=== PATIENT | male | born 1975 | race Caucasian/White ===

== ENCOUNTER 2017-06-11 18:52 | Emergency (ER) | payer MEDICAID ==
--- NOTE | 2017-06-11 19:11 | Emergency Department Record ---
History of Present Illness - General Chief complaint: Pain Stated complaint: RT SIDE RIB PAIN Time Seen by Provider: 06/11/17 19:07 Source: Patient Mode of Arrival: Ambulatory Limitations: No limitations - History of Present Illness Initial comments: 42 yo male presents to ED for evaluation of right anterior chest wall pain following injury that occurred approximately 30 minutes [employer]. Patient reports that he was wrestling with a friend who came down on the right side of his chest resulting in injury. Patient report pain with movement and deep inspiration, denies health problems at his baseline. Onset/Timin -: Minutes(s) Location: Right Severity scale (1-10): 6 Quality: Sharp Consistency: Intermittent Improves with: Immobilization Worsens with: Other (deep breath, movement) Associated Symptoms: Denies other symptoms - Related Data Allergies Allergy/AdvReac Type Severity Reaction Status Date / Time No Known Drug Allergies Allergy Verified 08/08/15 10:29 Travel Screening - Travel/Exposure Within Last 30 Days Have you traveled within the last 30 days?: No - Travel/Exposure Within Last Year Have you traveled outside the [place] in the last year?: No - Additonal Travel Details Have you been exposed to anyone with a communicable illness?: No - Travel Symptoms Symptom Screening: None Review of Systems Constitutional: Denies: Chills, Fever, Malaise, Night sweats Eyes: Denies: Eye discharge, Eye pain ENT: Denies: Congestion, Ear pain, Epistaxis Respiratory: Denies: Cough, Dyspnea Cardiovascular: Reports: Chest pain. Denies: Dyspnea on exertion, Palpitations , Paroxysmal nocturnal dyspnea Endocrine: Denies: Fatigue, Heat or cold intolerance Gastrointestinal: Denies: Abdominal pain, Nausea, Vomiting Genitourinary: Denies: Incontinence, Retention Musculoskeletal: Denies: Arthralgia, Back pain, Gout, Joint swelling Skin: Denies: Bruising, Change in color Neurological: Denies: Abnormal gait, Confusion, Headache, Tingling Psychiatric: Denies: Anxiety Hematological/Lymphatic: Denies: Anemia, Blood Clots Past Medical History - SOCIAL HISTORY Smoking Status: Current every day smoker Alcohol Use: None Drug Use: None - RESPIRATORY Hx Respiratory Disorders: No Hx Asthma: Yes Comment:: pt does not take meds for asthma - CARDIOVASCULAR Hx Cardio Disorders: No - NEURO Hx Neuro Disorders: Yes Hx Headaches: Yes (Migraine hx) Hx Seizures: Yes (Complicated Migrianes. Hemiplegic.) - GI Hx GI Disorders: No - Hx Genitourinary Disorders: No - ENDOCRINE Hx Endocrine Disorders: No - MUSCULOSKELETAL Hx Musculoskeletal Disorders: No - PSYCH Hx Psych Problems: No - HEMATOLOGY/ONCOLOGY Hx Hematology/Oncology Disorders: Yes Comment:: Antitrypsin deficiency Family Medical History Any Significant Family History?: Yes Hx Diabetes: Father Hx Heart Disease: Father, Grandparents Physical Exam - General General Appearance: Alert, Oriented x3, Cooperative, Moderate distress, Other ( Denies the need for analgesia on examination.) Limitations: No limitations - Head Head exam: Atraumatic, Normocephalic, Normal inspection Head exam detail: negative: Abrasion, Contusion, Cardozo's sign, General tenderness, Hematoma, Laceration - Eye Eye exam: Normal appearance. negative: Conjunctival injection, Periorbital swelling, Periorbital tenderness, Scleral icterus - ENT Ear exam: negative: Auricular hematoma, Auricular trauma Nasal Exam: negative: Active bleeding, Discharge, Dried blood, Foreign body Mouth exam: negative: Drooling, Laceration, Muffled voice, Tongue elevation - Neck Neck exam: Normal inspection. negative: Meningismus, Tenderness - Respiratory Respiratory exam: Normal lung sounds bilaterally, Chest wall tenderness (pain is reporducible with palpation of the right anterior chest wall). negative: Rhonchi, Stridor, Wheezes - Cardiovascular Cardiovascular Exam: Regular rate, Normal rhythm, Normal heart sounds - GI/Abdominal GI/Abdominal exam: Soft. negative: Distended, Rebound, Rigid, Tenderness - Rectal Rectal exam: Deferred - exam: Deferred - Extremities Extremities exam: Normal inspection. negative: Calf tenderness, Pedal edema, Tenderness - Back Back exam: Denies: CVA tenderness (R), CVA tenderness (L) - Neurological Neurological exam: Alert, Normal gait, Oriented X3 - Psychiatric Psychiatric exam: Normal affect, Normal mood - Skin Skin exam: Normal color. negative: Abrasion Type of lesion: negative: abrasion Course Vital Signs 06/11/17 18:59 Temperature 98.2 F Pulse Rate 98 H Respiratory 20 Rate Blood Pressure 139/93 Pulse Ox 99 - Reevaluation(s) Reevaluation #1: 06/11/17 20:00 CT Chest: Probable fractures of Ribs #4-7 No pneumothorax Patient was updated on all results, continues to decline analgesia. Discussed admission for multiple rib fractures, patient declined. Incentive spirometry was given for prevention of pneumonia. Patient also declined a note for work restrictions. Patient appears stable for discharge at this time. Disposition Disposition: Discharge Clinical Impression: Ribs, multiple fractures Qualifiers: Encounter type: initial encounter Fracture type: closed Laterality: right Qualified Code(s): S22.41XA - Multiple fractures of ribs, right side, initial encounter for closed fracture Disposition: Home, Self-Care Condition: (2) Stable Instructions: How to Use an Incentive Spirometer (ED), Rib Fracture (ED) Additional Instructions: return to ED if your symptoms worsen or if you have any concerns. IS as directed. Follow-up with your family doctor in 3-5 days as directed. Forms: Patient Portal Access Time of Disposition: 20:03 Quality - Quality Measures Quality Measures: N/A - Blood Pressure Screening Does Patient Have Any of the Following: No Blood Pressure Classification: Hypertensive Reading Systolic Measurement: 139 Diastolic Measurement: 93 Screening for High Blood Pressure: < First Hypertensive BP, F/U Documented > [ G8950] First Hypertensive Follow-up Interventions: Referral to alternative/primary care provider.
--- NOTE | 2017-06-13 08:47 | CT SCAN REPORT ---
EXAM: EMERGENCY CT SCAN OF THE CHEST WITHOUT CONTRAST HISTORY: RIGHT RIB PAIN, INJURY LESS THAN AN HOUR AGO, PATIENT FELL ABOUT THREE FEET WITH PAIN IN THE RIGHT BREAST AREA AND RIGHT SIDE. TECHNIQUE: Axial CT scan of the chest was performed without IV contrast. Comparison: No prior chest CT or chest x-ray with which to compare. FINDINGS: No pneumothorax is identified. There is some minor linear fibrosis or discoid atelectasis in the right lateral costophrenic angle, however, no acute infiltrate is seen to suggest pulmonary contusion and no pulmonary laceration identified. Evaluation of the kathya and mediastinum is somewhat limited without IV contrast, but no hilar or mediastinal adenopathy is seen. The heart size is normal. No pleural or pericardial effusion evident. There is mild deformity anteriorly in the right third rib suspicious for a slightly angulated, but essentially undisplaced fracture. Correlation with point tenderness at this site suggested. By history the patient's symptoms are right sided. There is a cleft in the anterior end of the left first rib, but there appears to be some sclerosis associated with this and this may represent some chronic costochondral deformity involving the left first rib. When the two sides are compared, there is some minor deformity along the posterior aspect of the right fourth, fifth, and sixth ribs with no such minor deformity on the left and these may represent additional subtle anterior right rib fractures. IMPRESSION: 1. PROBABLE MILDLY ANGULATED RIGHT FOURTH RIB FRACTURE ANTERIORLY AND POSSIBLE SUBTLE ANTERIOR RIB FRACTURES IN THE RIGHT FIFTH, SIXTH AND SEVENTH RIBS WELL. NO PNEUMOTHORAX EVIDENT. 2. 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 JOB NUMBER: [id number] [facility]
== END 2017-06-11 20:14 | disposition home or self-care (01) ==
LOC: ER 18:52
DX: S22.41XA Multiple fractures of ribs, right side, initial encounter for closed fracture (principal); Y93.83 Activity, rough housing and horseplay; F17.210 Nicotine dependence, cigarettes, uncomplicated
CPT/HCPCS: 71250; 99283

== ENCOUNTER 2018-06-23 12:25 | Emergency (ER) | payer MEDICAID ==
--- NOTE | 2018-06-23 12:40 | Emergency Department Record ---
History of Present Illness - General Chief Complaint: Laceration(s) Stated Complaint: LACERATION Time Seen by Provider: 06/23/18 12:30 Source: Patient Mode of Arrival: Ambulatory Limitations: No limitations - History of Present Illness Initial Commments: The patient is here due to cutting his L hand about 20 minutes ago. He accidentally cut it with a utility knife. The patient denies any numbness, tingling, or pain with ROM of the L thumb. His Td is UTD. Onset/Timin -: Minutes(s) Place: Work Context: Accidental, Sharp object use - Rebecca Coma Scale Eye Response: (4) Open spontaneously Motor Response: (6) Obeys commands Verbal Response: (5) Oriented [place] Total: 15 - Related Data Hx Tetanus Toxoid Vaccination: Yes Year of Tetanus Vaccination: pt states he has had one in the last 5 years Patient Tetanus UTD (within 5 yrs): Yes Previous Rx's Medication Instructions Recorded Cephalexin [Keflex] 500 mg PO QID #20 cap 06/23/18 Allergies Allergy/AdvReac Type Severity Reaction Status Date / Time No Known Drug Allergies Allergy Unverified 06/16/17 12:37 Travel Screening - Travel/Exposure Within Last 30 Days Have you traveled within the last 30 days?: Yes Location Detail:: [place] - Travel/Exposure Within Last Year Have you traveled outside the [place] in the last year?: No - Additonal Travel Details Have you been exposed to anyone with a communicable illness?: No - Travel Symptoms Symptom Screening: None Review of Systems Constitutional: Denies: Chills, Fever Past Medical History - SOCIAL HISTORY Smoking Status: Current every day smoker Alcohol Use: Occasional Drug Use: Occasional Drug Use Detail:: Marijuana - RESPIRATORY Hx Respiratory Disorders: No Hx Asthma: Yes Comment:: pt does not take meds for asthma - CARDIOVASCULAR Hx Cardio Disorders: No - NEURO Hx Neuro Disorders: Yes Hx Headaches: Yes (Migraine hx) Hx Seizures: Yes (Complicated Migrianes. Hemiplegic.) - GI Hx GI Disorders: No - Hx Genitourinary Disorders: No - ENDOCRINE Hx Endocrine Disorders: No - MUSCULOSKELETAL Hx Musculoskeletal Disorders: No - PSYCH Hx Psych Problems: No - HEMATOLOGY/ONCOLOGY Hx Hematology/Oncology Disorders: Yes Comment:: Antitrypsin deficiency Family Medical History Any Significant Family History?: No Hx Diabetes: Father Hx Heart Disease: Father, Grandparents Physical Exam - General General Appearance: Alert, Cooperative, No acute distress - Head Head exam: Atraumatic, Normocephalic - Extremities Extremities exam: Full ROM, Tenderness. negative: Normal inspection (There is a 1 cm lac over the L dorsal MCP joint in a vertical fashion. The distal L thumb was NVI with normal sensation and extension. There is no bony tenderness. ) Image of Hand: 1 - 1 cm vertical laceration. - Neurological Neurological exam: Alert. negative: Motor sensory deficit Course - Reevaluation(s) Reevaluation #1: Procedure note: The R hand lac was anesth. with 2 cc's Lido 1% with Epi. The wound was prepped with betadine and lavaged with sterile saline. Exploration was not possible due to extensive bleeding. The lac was then closed with 3 4.0 nylon sutures. There were no complications. 06/23/18 12:57 Disposition Disposition: Discharge Clinical Impression: Laceration of hand Qualifiers: Encounter type: initial encounter Foreign body presence: without foreign body Laterality: left Qualified Code(s): S61.412A - Laceration without foreign body of left hand, initial encounter Disposition: Home, Self-Care Condition: (2) Stable Instructions: Laceration (ED) Additional Instructions: Please keep the hand dry for 2 days then no soaking or swimming. Take the Keflex as directed and use Tylenol or Motrin for pain. Please have the sutures removed in 10-14 days. Return to the ER for any problems or signs of infection. Prescriptions: Cephalexin [Keflex] 500 mg PO QID #20 cap Forms: Patient Portal Access Time of Disposition: 13:00 Quality - Quality Measures Quality Measures: N/A - Blood Pressure Screening View Details: Yes Does Patient Have Any of the Following: No Blood Pressure Classification: Pre-Hypertensive BP Reading Systolic Measurement: 122 Diastolic Measurement: 75 Screening for High Blood Pressure: < Pre-Hypertensive BP, F/U Documented > [ G8950] Pre-Hypertensive Follow-up Interventions: Referral to alternative/primary care provider.
== END 2018-06-23 13:05 | disposition home or self-care (01) ==
LOC: ER 12:25
DX: S61.012A Laceration without foreign body of left thumb without damage to nail, initial encounter (principal); W27.8XXA Contact with other nonpowered hand tool, initial encounter; Y99.0 Civilian activity done for income or pay; F17.210 Nicotine dependence, cigarettes, uncomplicated
CPT/HCPCS: 12001; 99283